=== PATIENT | female | born 2005 | race Caucasian/White ===

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

== ENCOUNTER → 2024-12-24 | Outpatient (CLI) | payer OTHER | END | disposition home or self-care (01) | LOC: LAB 17:54 → LAB SHORT 17:54 | DX: H60.12 Cellulitis of left external ear (principal) | CPT/HCPCS: 87070; 87077; 87186; 87205 ==